=== PATIENT | female | born 1950 | race Caucasian/White ===

== ENCOUNTER 2019-05-16 14:08 | Emergency (ER) | payer OTHER ==
[~2019-05-16] VITALS: Ht 167.6 cm; Wt 92.1 kg
[2019-05-16] MEDS ORDERED: EPIPEN 2-P0.3 MG/0.3 IM (16:17)
[2019-05-16] MEDS ORDERED: Benadryl 50 mg50 MG PO (16:17)
[2019-05-16] MEDS ORDERED: Prilosec Otc20 MG PO (16:17)
[2019-05-16] MEDS ORDERED: Prednisone20 MG PO (16:17)
== END 2019-05-16 16:40 | disposition home or self-care (01) ==
LOC: ER 14:08
DX: T78.3XXA Angioneurotic edema, initial encounter (principal); Z88.8 Allergy status to other drugs, medicaments and biological substances; E11.9 Type 2 diabetes mellitus without complications; J44.9 Chronic obstructive pulmonary disease, unspecified; I10 Essential (primary) hypertension; E03.9 Hypothyroidism, unspecified; Z79.899 Other long term (current) drug therapy; Z79.52 Long term (current) use of systemic steroids
CPT/HCPCS: 71046; 96374; 96375; 99284-25; J2930

== ENCOUNTER 2019-07-19 14:43 | Emergency (ER) | payer OTHER ==
[~2019-07-19] VITALS: Ht 167.6 cm; Wt 90.7 kg
[~2019-07-19 14:43] MED LIST: Benadryl 50 mg50 MG PO; EPIPEN 2-P0.3 MG/0.3 IM; Prednisone20 MG PO; Prilosec Otc20 MG PO
[2019-07-19] MEDS ORDERED: LEVSOD112 PO (15:20)
[2019-07-19] MEDS ORDERED: FURO40 PO (15:20)
[2019-07-19] MEDS ORDERED: GLIM2 PO (15:20)
[2019-07-19] MEDS ORDERED: METF500 PO (15:21)
[2019-07-19] MEDS ORDERED: NIFE60ER PO (15:21)
[2019-07-19] MEDS ORDERED: METO100ER PO (15:21)
[2019-07-19] MEDS ORDERED: Aspir 8181 MG PO (15:22)
[2019-07-19] MEDS ORDERED: FLUT1DIS5 INH (15:22)
[2019-07-19] MEDS ORDERED: IRON150C PO (15:23)
[2019-07-19] MEDS ORDERED: Prednisone20 MG PO (18:05)
[2019-07-19] MEDS ORDERED: CIME400 PO (18:05)
== END 2019-07-19 18:17 | disposition home or self-care (01) ==
LOC: ER 14:43
DX: T78.40XA Allergy, unspecified, initial encounter (principal); J44.9 Chronic obstructive pulmonary disease, unspecified; E11.9 Type 2 diabetes mellitus without complications; I10 Essential (primary) hypertension; E03.9 Hypothyroidism, unspecified; K21.9 Gastro-esophageal reflux disease without esophagitis; Z88.8 Allergy status to other drugs, medicaments and biological substances; Z79.899 Other long term (current) drug therapy; Z79.82 Long term (current) use of aspirin
CPT/HCPCS: 82947; 96374; 96375; 99284-25; J1200; J2930

== ENCOUNTER 2020-07-19 21:45 | Inpatient (IN) | payer OTHER ==
[~2020-07-19] VITALS: Ht 170.2 cm; Wt 113.4 kg
[~2020-07-19 21:45] MED LIST changes: +Aspir 8181 MG PO; +CIME400 PO; +FLUT1DIS5 INH; +FURO40 PO; +GLIM2 PO; +IRON150C PO; +LEVSOD112 PO; +METF500 PO; +METO100ER PO; +NIFE60ER PO
[2020-07-19 21:55] LABS: Calcium, Ionized (POC) 1.09 mmol/L (1.10-1.46); Chloride (POC) 106 mmol/L (98-108); Creatinine (POC) 1.3 mg/dL (0.6-1.0); Glucose (ISTAT POC) 313 mg/dL (70-99); Hemoglobin (POC) 12.9 g/dL (12.0-16.0); Potassium (POC) 4.3 mmol/L (3.5-5.5); Sodium (POC) 139 mmol/L (135-148); Total CO2 (POC) 18 mmol/L (21-32)
[2020-07-19 22:04] LABS: BASOPHILS ABSOLUTE AUTO 0.13 K/mm3 (0.00-0.23); BASOPHILS PERCENT AUTO 1 % (0-2); EOSINOPHILS ABSOLUTE AUTO 0.46 K/mm3 (0.00-0.68); EOSINOPHILS PERCENT AUTO 3 % (0-6); Hemoglobin 11.8 g/dL (11.5-16.0); IMMATURE GRAN ABSOLUTE AUTO 1.32 K/mm3 (0.00-0.10); IMMATURE GRAN PERCENT AUTO 9 % (0-1); LYMPHOCYTES ABSOLUTE AUTO 5.39 K/mm3 (0.84-5.20); LYMPHOCYTES PERCENT AUTO 36 % (21-46); MONOCYTES ABSOLUTE AUTO 1.03 K/mm3 (0.16-1.47); MONOCYTES PERCENT AUTO 7 % (4-13); Mean Corpuscular HGB 29.4 pg (26.0-34.0); Mean Corpuscular HGB Conc 28.8 g/dL (31.5-36.5); Mean Corpuscular Volume 102 fL (80-100); Mean Platelet Volume 10.9 fL (9.1-12.4); NEUTROPHILS ABSOLUTE AUTO 6.77 K/mm3 (1.96-9.15); NEUTROPHILS PERCENT AUTO 45 % (41-73); NRBC ABSOLUTE 0.14 K/mm3 (0.00-0.02); NRBC Auto 0.9 /100 WBC (0.0-0.2); Platelet Count 283 K/mm3 (150-400); RDW Coefficient Variation 13.4 % (11.7-14.2); Red Blood Cell Count 4.01 M/mm3 (3.80-5.20)
[2020-07-19 22:18] LABS: Albumin, Blood 2.9 g/dL (3.4-5.0); Albumin/Globulin Ratio 0.9 (0.8-1.8); Bilirubin, Total 0.2 mg/dL (0.1-1.0); Bun/Creatinine Ratio 10.9 (12.0-20.0); Calcium, Blood 8.5 mg/dL (8.5-10.1); Creatinine, Blood 1.38 mg/dL (0.40-1.00); Globulin, Blood 3.4 g/dL (2.2-4.0); Potassium, Blood 4.4 mmol/L (3.5-5.5); Total Protein, Blood 6.3 g/dL (6.4-8.2); Troponin I 0.181 ng/mL (0.000-0.040)
[2020-07-19 22:19] LABS: International Normalized Ratio 1.12; Prothrombin Time Results 11.9 Sec (9.7-11.5)
[2020-07-19 22:23] LABS: BAND PERCENT MAN 4 % (0-8); BASOPHILS PERCENT MAN 0 % (0-2); EOSINOPHILS ABSOLUTE MAN 0.45 K/mm3 (0.00-0.68); EOSINOPHILS PERCENT MAN 3 % (0-6); LYMPHOCYTES ABSOLUTE MAN 4.37 K/mm3 (0.84-5.20); LYMPHOCYTES PERCENT MAN 29 % (21-46); METAMYELOCYTE ABSOLUTE MAN 0.45 K/mm3 (0.00-0.00); METAMYELOCYTE PERCENT MAN 3 % (0-0); MONOCYTES ABSOLUTE MAN 1.51 K/mm3 (0.16-1.47); MONOCYTES PERCENT MAN 10 % (4-13); MYELOCYTE ABSOLUTE MAN 0.15 K/mm3 (0.00-0.00); MYELOCYTE PERCENT MAN 1 % (0-0); PROMYELOCYTE ABSOLUTE MAN 0.15 K/mm3 (0.00-0.00); PROMYELOCYTE PERCENT MAN 1 % (0-0); SEG NEUTROPHILS PERCENT MAN 49 % (41-73); TOTAL CELLS COUNTED 100
[2020-07-19 23:18] LABS: Magnesium, Blood 2.3 mg/dL (1.6-2.4)
[2020-07-19 23:43] LABS: Adenovirus Not Detected (NOT DETECT); Bordetella pertussis Not Detected (NOT DETECT); Chlamydophila pneumoniae Not Detected (NOT DETECT); Coronavirus 229E Not Detected (NOT DETECT); Coronavirus HKU1 Not Detected (NOT DETECT); Coronavirus NL63 Not Detected (NOT DETECT); Coronavirus OC43 Not Detected (NOT DETECT); Human Metapneumovirus Not Detected (NOT DETECT); Human Rhinovirus/Enterovirus Not Detected (NOT DETECT); Influenza A/2009-H1 Not Detected (NOT DETECT); Influenza A/H1 Not Detected (NOT DETECT); Influenza A/H3 Not Detected (NOT DETECT); Influenza B Not Detected (NOT DETECT); Mycoplasma pneumoniae Not Detected (NOT DETECT); Parainfluenza Virus 1 Not Detected (NOT DETECT); Parainfluenza Virus 2 Not Detected (NOT DETECT); Parainfluenza Virus 3 Not Detected (NOT DETECT); Parainfluenza Virus 4 Not Detected (NOT DETECT); Respiratory Syncytial Virus Not Detected (NOT DETECT); SARS-Cov-2 (COVID-19), BioFire Not Detected (NOT DETECT)
[2020-07-20 01:13] LABS: PCO2 Arterial 84.6 mmHg (35-45); PO2 Arterial 111 mmHg (80-100); pH Blood Arterial 7.02 (7.35-7.45)
== END 2020-07-20 03:38 | DRG 296 ==
LOC: ER 21:45 → ICUW 22:52
PROVIDERS: Emergency Medicine; ADMIT Internal Medicine
PROC: 0BH18EZ Insertion of Endotracheal Airway into Trachea, Via Natural or Artificial Opening Endoscopic (ICD-10-PCS; principal; 2020-07-19)
PROC: 5A1935Z Respiratory Ventilation, Less than 24 Consecutive Hours (ICD-10-PCS; 2020-07-19)
PROC: 5A12012 Performance of Cardiac Output, Single, Manual (ICD-10-PCS; 2020-07-19)
DX: I46.9 Cardiac arrest, cause unspecified (principal); J96.01 Acute respiratory failure with hypoxia; G93.1 Anoxic brain damage, not elsewhere classified; E11.9 Type 2 diabetes mellitus without complications; Z51.5 Encounter for palliative care; J44.9 Chronic obstructive pulmonary disease, unspecified; Z20.828 Contact with and (suspected) exposure to other viral communicable diseases; K21.9 Gastro-esophageal reflux disease without esophagitis; Z79.82 Long term (current) use of aspirin; E03.9 Hypothyroidism, unspecified; G47.33 Obstructive sleep apnea (adult) (pediatric); Z79.84 Long term (current) use of oral hypoglycemic drugs
CPT/HCPCS: 0202U; 31500; 31720; 36600; 51702; 70450; 71045; 71260; 80047; 80053; 82803; 83690; 83735; 83880; 84484; 85014; 85025; 85610; 92950; 93005; 93010; 94002; 94770; 99285-25; J0171; J2704; J2930; J7030; J7060; Q9967